=== PATIENT | male | born 1935 | race Caucasian/White ===

== ENCOUNTER 2017-02-07 11:32 | Inpatient (IN) | payer MEDICARE, MEDICAID ==
[~2017-02-07] VITALS: Ht 182.9 cm; Wt 106.6 kg
[~2017-02-07 11:32] MED LIST: AMLO5TAB2 PO; ASPI325T4 PO; CARV25TA2 PO; FURO40TA4 PO; GLIM2TAB2 PO; LIPITOR80 MG PO; LISI-334 PO; METF500T4 PO; OXYC5CAP3 PO; POTA8CAP PO; TAMS0.4C2 PO
[2017-02-07] MEDS ORDERED: HYDROCODONE/APAP 5/325MG TABLET. ONE (12:23)
--- NOTE | 2017-02-07 12:23 | PHYS DOC ---
Past Medical History Past Medical History: Diabetes-Type II, Hypertension, Other Additional Past Medical Histor: BLE SWELLING Past Surgical History: Appendectomy, Coronary Bypass Surgery, Tonsillectomy Alcohol Use: None Drug Use: None Adult General Chief Complaint Chief Complaint: LOWER EXTREMITY SWELLING HPI HPI Patient is a 82 year old male who presents with bilateral leg swelling and wound drainage. Patient presents with increasing leg swelling and drainage bilateral legs anterior shins. Edema goes all the way up to the knee bilaterally. Erythema surrounding the draining wounds. Patient states he was seen in the wound clinic up until the first of the year for these wounds. He states he has not been on antibiotics in over 6 months for these wounds. He denies any fevers or chills or shortness of breath. Patient denies any chest pain or chest pressure. Patient is a diabetic and has had coronary artery bypass surgery. Patient taking Ultram for pain. Patient states that his diet has been good. Patient denies any problems with bowel or bladder function. Review of Systems Review of Systems Constitutional: Denies fever or chills Eyes: Denies change in visual acuity, redness, or eye pain HENT: Denies nasal congestion or sore throat Respiratory: Denies cough or shortness of breath Cardiovascular: No chest pain or palpitations GI: Denies abdominal pain, nausea, vomiting, bloody stools or diarrhea : Denies dysuria or hematuria Musculoskeletal: Denies new back pain or joint pain . Positive bilateral martínez pain and ankle and knee pain Integument: Erythematous serous draining wounds involve the entire martínez bilaterally. Erythematous margins with scabbing and pitting edema bilateral anterior shins. Neurologic: Denies headache, focal weakness or sensory changes Endocrine: Denies polyuria or polydipsia Current Medications Current Medications Current Medications Medications (Trade) Dose Ordered Sig/Demetrice Start Time Stop Time Status Last Admin Dose Admin Acetaminophen/ Hydrocodone Bitart (Lortab 5/325) 1 tab STK-MED ONCE 02/07/17 12:23 02/07/17 12:24 DC Allergies Allergies Allergies Coded Allergies Type Severity Reaction Last Updated Verified No Known Drug Allergies 10/19/16 No Physical Exam Physical Exam Constitutional: Well developed, well nourished, mild acute distress, non-toxic appearance. HENT: Normocephalic, atraumatic,oropharynx moist, no oral exudates, nose normal. Neck: Normal range of motion, no tenderness, supple, no stridor. Cardiovascular:Heart rate regular rhythm, no murmur Lungs & Thorax: Bilateral breath sounds clear to auscultation Abdomen: Bowel sounds normal, soft, no tenderness, no masses, no pulsatile masses. Skin: Large area of erythema with exudate involving the bilateral shins.pitting edema up to knees bilaterally. Shins are warm to the touch. Extremities: Bilateral martínez tenderness, no cyanosis, no clubbing, edema up to knees bilaterally Neurologic: Alert and oriented X 3, normal motor function, normal sensory function, no focal deficits noted. Psychologic: Affect normal, judgement normal, mood normal. Current Patient Data Vital Signs Vital Signs Date Time Temp Pulse Resp B/P Pulse Ox O2 Delivery O2 Flow Rate FiO2 02/07/17 13:00 97 20 176/82 97 Room Air 02/07/17 11:35 97.5 97.5 Lab Values Laboratory Tests Test 02/07/17 12:35 02/07/17 12:50 Urine Collection Type Unknown Urine Color Yellow Urine Clarity Clear Urine pH 5.5 Urine Specific Delmar 1.010 Urine Protein Negativemg/dL (NEG-TRACE) Urine Glucose (UA) Negativemg/dL (NEG) Urine Ketones (Stick) Negativemg/dL (NEG) Urine Blood Negative (NEG) Urine Nitrite Negative (NEG) Urine Bilirubin Negative (NEG) Urine Urobilinogen Dipstick 1.0mg/dL (0.2 mg/dL) Urine Leukocyte Esterase Trace (NEG) Urine RBC 0/HPF (0-2) Urine WBC 5-10/HPF (0-4) Urine Squamous Epithelial Cells Few/LPF Urine Transitional Epithelial Cells Few/LPF Urine Bacteria 0/HPF (0-FEW) White Blood Count 5.2x10^3/uL (4.0-11.0) Red Blood Count 4.55x10^6/uL (4.30-5.70) Hemoglobin 12.4g/dL (13.0-17.5) L Hematocrit 37.2% (39.0-53.0) L Mean Corpuscular Volume 82fL (79-100) Mean Corpuscular Hemoglobin 27pg (25-35) Mean Corpuscular Hemoglobin Concent 33g/dL (31-37) Red Cell Distribution Width 12.8% (11.5-14.5) Platelet Count 322x10^3/uL (140-400) Neutrophils (%) (Auto) 64% (31-73) Lymphocytes (%) (Auto) 16% (24-48) L Monocytes (%) (Auto) 15% (0-9) H Eosinophils (%) (Auto) 3% (0-3) Basophils (%) (Auto) 1% (0-3) Neutrophils # (Auto) 3.3x10^3uL (1.8-7.7) Lymphocytes # (Auto) 0.8x10^3/uL (1.0-4.8) L Monocytes # (Auto) 0.8x10^3/uL (0.0-1.1) Eosinophils # (Auto) 0.2x10^3/uL (0.0-0.7) Basophils # (Auto) 0.1x10^3/uL (0.0-0.2) Sodium Level 140mmol/L (136-145) Potassium Level 4.5mmol/L (3.5-5.1) Chloride Level 103mmol/L (98-107) Carbon Dioxide Level 27mmol/L (21-32) Anion Gap 10 (6-14) Blood Urea Nitrogen 19mg/dL (8-26) Creatinine 0.9mg/dL (0.7-1.3) Estimated GFR (Cockcroft-Gault) 80.8 BUN/Creatinine Ratio 21 (6-20) H Glucose Level 188mg/dL (70-99) H Calcium Level 9.1mg/dL (8.5-10.1) Total Bilirubin 0.5mg/dL (0.2-1.0) Aspartate Amino Transferase (AST) 31U/L (15-37) Alanine Aminotransferase (ALT) 26U/L (16-63) Alkaline Phosphatase 75U/L (46-116) Total Protein 7.8g/dL (6.4-8.2) Albumin 2.9g/dL (3.4-5.0) L Albumin/Globulin Ratio 0.6 (1.0-1.7) L Laboratory Tests 02/07/17 12:50 Laboratory Tests 02/07/17 12:50 EKG EKG [] Radiology/Procedures Radiology/Procedures [] Course & Med Decision Making Course & Med Decision Making Pertinent Labs and Imaging studies reviewed. (See chart for details) Discussed case with Dr. oYung at 1402 he agrees to admit the patient request wound care consult Dragon Disclaimer Dragon Disclaimer This electronic medical record was generated, in whole or in part, using a voice recognition dictation system. Departure Departure Impression: Primary Impression: Cellulitis Disposition: 09 ADMITTED INPATIENT Admitting Physician: Zane Young Condition: STABLE Referrals: KHALIDA YOUNG MD (PCP) Problem Qualifiers Primary Impression: Cellulitis Site of cellulitis: extremity Site of cellulitis of extremity: lower extremity Laterality: unspecified laterality Qualified Code: L03.119 - Cellulitis of unspecified part of limb STEFAN BRUMFIELD MD Feb 07, 2017 12:23
[2017-02-07] MEDS ORDERED: HYDROCODONE/APAP 5/325MG TABLET. PO ONE ×2 (12:30→14:45)
[2017-02-07 13:05] LABS: BASO # 0.1 x10^3/uL (0.0-0.2); BASO % 1 % (0-3); EOS % 3 % (0-3); HEMATOCRIT 37.2 % (39.0-53.0); HEMOGLOBIN 12.4 g/dL (13.0-17.5); LYMPH # 0.8 x10^3/uL (1.0-4.8); LYMPH % 16 % (24-48); MEAN CORPUSCULAR HEMOGLOBIN 27 pg (25-35); MEAN CORPUSCULAR HGB CONC 33 g/dL (31-37); MEAN CORPUSCULAR VOLUME 82 fL (79-100); MONO % 15 % (0-9); NEUT % 64 % (31-73); PLATELET COUNT 322 x10^3/uL (140-400); RED BLOOD COUNT 4.55 x10^6/uL (4.30-5.70); RED CELL DISTRIBUTION WIDTH 12.8 % (11.5-14.5); WHITE BLOOD COUNT 5.2 x10^3/uL (4.0-11.0)
[2017-02-07 13:06] LABS: BILIRUBIN,URINE NEGATIVE (NEG); GLUCOSE,URINE NEGATIVE (NEG); NITRITE,URINE NEGATIVE (NEG); PH,URINE 5.5; PROTEIN,URINE NEGATIVE (NEG-TRACE)
[2017-02-07 13:25] LABS: BACTERIA,URINE 0 /HPF (0-FEW); RBC,URINE 0 /HPF (0-2); SQUAMOUS EPITHELIAL CELL,UR FEW /LPF
[2017-02-07 13:26] LABS: CALCIUM 9.1 mg/dL (8.5-10.1); CREATININE 0.9 mg/dL (0.7-1.3); GFR 80.8; POTASSIUM 4.5 mmol/L (3.5-5.1)
[2017-02-07 13:31] LABS: ALBUMIN 2.9 g/dL (3.4-5.0); ALBUMIN/GLOBULIN RATIO 0.6 (1.0-1.7); TOTAL BILIRUBIN 0.5 mg/dL (0.2-1.0); TOTAL PROTEIN 7.8 g/dL (6.4-8.2)
[2017-02-07 17:00] VITALS: BP 84/58
[2017-02-07] MEDS: OXYCODONE/APAP 5/325 TABLET. PO PRN (18:42)
[2017-02-07] MEDS ORDERED: DEXTROSE 50% 25 GM / 50ML DISP.SYRIN. IV PRN (18:45)
[2017-02-07 19:00] VITALS: BP 153/62
[2017-02-07] MEDS: CARVEDILOL 12.5 MG TABLET. PO SCH (19:00)
[2017-02-07] MEDS: CEFTRIAXONE SODIUM 1 GM in IV NORMAL SALINE 50ML 50 ML IV SCH (19:00)
[2017-02-07] MEDS: ATORVASTATIN CALCIUM 40 MG TABLET. PO SCH (20:56)
[2017-02-07 22:58] VITALS: BP 135/54
[2017-02-08 03:00] VITALS: BP 107/53
[2017-02-08 07:00] VITALS: BP 135/56
[2017-02-08 07:09] LABS: ALBUMIN 2.4 g/dL (3.4-5.0); ALBUMIN/GLOBULIN RATIO 0.5 (1.0-1.7); CALCIUM 8.4 mg/dL (8.5-10.1); CREATININE 0.9 mg/dL (0.7-1.3); GFR 80.8; POTASSIUM 3.5 mmol/L (3.5-5.1); TOTAL BILIRUBIN 0.9 mg/dL (0.2-1.0); TOTAL PROTEIN 6.9 g/dL (6.4-8.2)
[2017-02-08] MEDS: INSULIN ASPART 300 UNITS/3 ML INSULN.PEN SQ SCH ×3 (08:00→17:27)
[2017-02-08] MEDS ORDERED: GLIMEPIRIDE 2 MG TABLET. ONE (08:04)
[2017-02-08] MEDS: ASPIRIN 325 MG TABLET PO SCH (08:52)
[2017-02-08] MEDS: TAMSULOSIN 0.4 MG CAP.ER.24H. PO SCH (08:52)
[2017-02-08] MEDS: FUROSEMIDE 40 MG TABLET. PO SCH (08:52)
[2017-02-08] MEDS: GLIMEPIRIDE 2 MG TABLET PO SCH (08:52)
[2017-02-08] MEDS: CARVEDILOL 12.5 MG TABLET. PO SCH ×2 (08:52→17:00)
[2017-02-08] MEDS: LISINOPRIL 20 MG TABLET PO SCH (08:52)
[2017-02-08] MEDS: METFORMIN 500 MG TABLET. PO SCH ×2 (08:53→17:20)
[2017-02-08] MEDS: AMLODIPINE BESYLATE 5 MG TABLET. PO SCH (08:53)
[2017-02-08] MEDS ORDERED: POTASSIUM CHLORIDE PO SCH (09:00)
[2017-02-08 10:45] VITALS: BP 120/56
--- NOTE | 2017-02-08 12:56 | CARD ---
APPROVED REPORT EXAM: Two-dimensional and M-mode echocardiogram with Doppler and color Doppler. Other Information Quality : GoodHR: 82bpm Rhythm : NSR with APC's INDICATION Cardiac Disease: CAD LE edema 2D DIMENSIONS RVDd3.5 (2.9-3.5cm)Left Atrium(2D)3.7 (1.6-4.0cm) IVSd0.7 (0.7-1.1cm)Aortic Root(2D)2.9 (2.0-3.7cm) LVDd5.3 (3.9-5.9cm)LVOT Diameter2.3 (1.8-2.4cm) PWd0.8 (0.7-1.1cm)LVDs3.9 (2.5-4.0cm) FS (%) 25.9 %SV69.0 ml LVEF(%)50.5 (>50%) Aortic Valve AoV Peak Cooper.185.8cm/sAoV VTI31.1cm AO Peak GR.13.8mmHgLVOT Peak Cooper.143.2cm/s LVOT VTI 25.01cmAO Mean GR.7mmHg JERRY (VMAX)3.53xa4DXI (VTI)3.22cm2 Mitral Valve MV E Doysfcar01.1cm/sMV DECEL [id number] MV A Urarnswr090.3cm/sMV E Mean Gr.3mmHg MV TZM92gfR/A Ratio0.8 MV A [id number] (PHT)3.42cm2 TDI E/Lateral E'9.8E/Medial E'14.8 Pulmonary Valve PV Peak Bivjorwi295.4cm/sPV Peak Grad.6mmHg RVOT VTI20.6cm Tricuspid Valve TR P. Ecqseenw277cr/sRAP XNSEWCFQ1plUo TR Peak Gr.58cpZdSDSK58iaYt LEFT VENTRICLE The left ventricle is normal size. There is normal left ventricular wall thickness. Left ventricle sy stolic function is normal. The Ejection Fraction is 55%. There is normal LV segmental wall motion. Tr ansmitral Doppler flow pattern is Grade I-abnormal relaxation pattern. There is no ventricular septal defect visualized. RIGHT VENTRICLE The right ventricle is normal size. The right ventricular systolic function is normal. ATRIA The left atrium size is normal. The right atrium size is normal. The interatrial septum is intact wit h no evidence for an atrial septal defect or patent foramen ovale as noted on 2-D or Doppler imaging. AORTIC VALVE The aortic valve is moderately sclerotic but opens well. The aortic valve is trileaflet. Doppler and Color Flow revealed trace aortic regurgitation. There is no significant aortic valvular stenosis. MITRAL VALVE The mitral valve is calcified but opens well. There is no evidence of mitral valve prolapse. There is no mitral valve stenosis. Doppler and Color Flow revealed mild mitral regurgitation. TRICUSPID VALVE The tricuspid valve is normal in structure and function. Doppler and Color Flow revealed trace tricus pid regurgitation. There is no pulmonary hypertension. The PA pressure was estimated at 26 mmHg. PULMONIC VALVE The pulmonary valve is normal in structure and function. Doppler and Color Flow revealed trace pulmon ic valvular regurgitation. GREAT VESSELS The aortic root is normal in size. Normal pulmonary venous flow (Doppler). The IVC is normal in size and collapses >50% with inspiration. PERICARDIAL EFFUSION There is no pleural effusion. There is no evidence of significant pericardial effusion. Critical Notification Critical Value: No <Conclusion> Left ventricle systolic function is normal. The Ejection Fraction is 55%. There is normal LV segmental wall motion. Transmitral Doppler flow pattern is Grade I-abnormal relaxation pattern. Trace aortic regurgitation. Mild mitral regurgitation. Trace tricuspid regurgitation. The PA pressure was estimated at 26 mmHg. There is no evidence of significant pericardial effusion.
[2017-02-08 15:00] VITALS: BP 104/55
[2017-02-08] MEDS: OXYCODONE/APAP 5/325 TABLET. PO PRN ×2 (15:04→20:51)
[2017-02-08] MEDS: CEFTRIAXONE SODIUM 1 GM in IV NORMAL SALINE 50ML 50 ML IV SCH (17:21)
--- NOTE | 2017-02-08 17:50 | PDOC ---
Provider Note Provider Note H&P dictated # [id number] 1. venous stasis ulcers of bilateral lower extremities with cellulitis: wound care, elevation, compression, IV antibiotics 2. CAD s/p [place] CABG several years ago: EF normal 3. Type 2 diabetes with likely peripheral neuropathy: sugars currently controlled KHALIDA YOUNG MD Feb 08, 2017 17:50
[2017-02-08 19:00] VITALS: BP 154/52
[2017-02-08] MEDS: TEMAZEPAM 7.5 MG CAPSULE PO PRN (20:51)
[2017-02-08] MEDS: ATORVASTATIN CALCIUM 40 MG TABLET. PO SCH (20:51)
--- NOTE | 2017-02-08 21:54 | HP ---
ADMIT DATE: 02/07/2017 ADMISSION DIAGNOSIS: Cellulitis of the lower extremities. HISTORY OF PRESENT ILLNESS: This is an 82-year-old white male status post CABG with vein grafts who has had chronic lymphedema issues. He came to the office several months ago with venous stasis and ulceration and was sent to the wound care clinic where he healed these wounds. He has not been back over the last 3 months and his swelling has returned. He has not been in the office for any followup. He has been taking his medications. He denies any chest pain or shortness of breath. He has been trying to control the pain with tramadol. PAST MEDICAL HISTORY: Significant for type 2 diabetes, hypertension, lymphedema, coronary artery disease. PAST SURGICAL HISTORY: Include appendectomy, CABG and tonsillectomy. SOCIAL HISTORY: Negative for tobacco, alcohol or drug use. He lives with his female union steward, Cindy Stewart, who just had a pacemaker placed. FAMILY HISTORY: Noncontributory. ALLERGIES: He has no known drug allergies. HOME MEDICATIONS: Include amlodipine 5 mg daily, aspirin 325 daily, atorvastatin 80 daily, carvedilol 25 b.i.d., furosemide 40 daily, glimepiride 2 mg daily, lisinopril 20 mg daily, metformin 500 b.i.d., oxycodone 5 mg p.r.n. pain, potassium chloride ____ mEq daily, tamsulosin 0.4 mg at bedtime. REVIEW OF SYSTEMS: CONSTITUTIONAL: He denies chest pain. He denies shortness of breath. There has been no palpitations. There has been no cough. HEENT: Negative for upper respiratory or flu like symptoms. No change in his vision, no change in his hearing. No change in his taste. GASTROINTESTINAL: Negative for change in his appetite. There has not been any diarrhea, nausea or vomiting. MUSCULOSKELETAL: Positive for generalized weakness and debility. SKIN: Positive for ulcerations of the lower extremities. PSYCHIATRIC: Positive for some poor judgment and insight. No dementia symptoms. NEUROLOGIC: Consistent with peripheral neuropathy. PHYSICAL EXAMINATION: VITAL SIGNS: He has been afebrile, temperature is at 99, heart rate has been normal, respiratory rate has been normal, blood pressures have been as low as 104/55, room air oxygen saturations have been in the mid-90s. He has had more urine output than input since admission, his weight is 235 pounds. He has had 10 voids today. GENERAL: He is alert and oriented, little bit hard of hearing. He is not currently wearing his glasses. HEENT: There is no sinus congestion. There is no scleral icterus. His conjunctivae are clear. His mucous membranes are moist. NECK: Supple, no bruits. HEART: Regular rate and rhythm without murmur heard, occasional irregular beat is noted likely a PVC or PAC. LUNGS: Clear to auscultation. ABDOMEN: Soft, nondistended, nontender, no organomegaly is noted. Bowel sounds are present. EXTREMITIES: He has wraps on his legs. There are some signs of cellulitis though from the skin I can see with bright red. There is no adenopathy behind his knee, though. There are multiple sores in various stages of healing on both lower extremities per photos. Because of the wraps, I am unable to test for sensation adequately. He is not showing any focal weakness in his extremities, though. LABORATORY DATA: His hemoglobin is slightly low at 12.4. His white count is normal at 5.2, platelets are normal at 322. His chemistries show blood sugars range from 119-205. His albumin is low at 2.4, sodium is 135. The rest of the electrolytes are normal. His BUN is normal at 14 with a creatinine of 0.9. Urinalysis is unremarkable. Echocardiogram shows left ventricular systolic function that is normal. His EF is 55%. There is mild mitral regurgitation. There is a trace of tricuspid regurgitation, trace of aortic regurgitation. The PA pressure is 26. There is no pericardial effusion, no other imaging studies. ASSESSMENT: 1. Chronic lymphedema with venous stasis ulcers and cellulitis. 2. Moderate protein malnutrition. 3. Coronary artery disease, status post CABG. 4. Hypertension, controlled. 5. Type 2 diabetes, controlled, possible peripheral neuropathy. 6. Benign prostatic hypertrophy with urinary frequency, suggestive of some retention. PLAN: He is admitted. He is on IV Rocephin. Wound care is treating his legs. His sugars being controlled. He seems to be diuresing well at this point. We discussed the need for outpatient wound care followup. He is concerned about being hospitalized tomorrow as it is the first of the month and he has "bills to pay." He is hopeful that he can be discharged soon. W Jw YOUNG MD DR: CONSUELO/leisa JOB#: [id number] / [id number]
[2017-02-08 23:00] VITALS: BP 136/62
[2017-02-09 03:00] VITALS: BP 138/60
[2017-02-09] MEDS: OXYCODONE/APAP 5/325 TABLET. PO PRN ×3 (06:23→18:10)
[2017-02-09 07:33] VITALS: BP 174/66
[2017-02-09] MEDS ORDERED: GLIMEPIRIDE 2 MG TABLET. ONE (07:36)
[2017-02-09] MEDS: METFORMIN 500 MG TABLET. PO SCH ×2 (08:12→17:00)
[2017-02-09] MEDS: FUROSEMIDE 40 MG TABLET. PO SCH (08:12)
[2017-02-09] MEDS: GLIMEPIRIDE 2 MG TABLET PO SCH (08:12)
[2017-02-09] MEDS: TAMSULOSIN 0.4 MG CAP.ER.24H. PO SCH (08:12)
[2017-02-09] MEDS: ASPIRIN 325 MG TABLET PO SCH (08:13)
[2017-02-09] MEDS: LISINOPRIL 20 MG TABLET PO SCH (08:13)
[2017-02-09] MEDS: AMLODIPINE BESYLATE 5 MG TABLET. PO SCH (08:13)
[2017-02-09] MEDS: CARVEDILOL 12.5 MG TABLET. PO SCH ×2 (08:13→17:00)
[2017-02-09] MEDS: INSULIN ASPART 300 UNITS/3 ML INSULN.PEN SQ SCH ×3 (08:18→17:04)
[2017-02-09 11:00] VITALS: BP 107/50
--- NOTE | 2017-02-09 11:47 | PDOC ---
SUBJECTIVE Subjective Not really having too much pain with legs. He is eating and drinking okay. Denies any shortness of breath. Hasn't been ambulating yet. OBJECTIVE Vital Signs Vital Signs Date Time Temp Pulse Resp B/P Pulse Ox O2 Delivery O2 Flow Rate FiO2 02/09/17 08:13 77 174/66 02/09/17 08:13 77 174/66 02/09/17 08:13 77 174/66 02/09/17 08:00 Room Air 02/09/17 07:33 98.2 77 19 174/66 94 Room Air 98.2 02/09/17 07:31 16 Room Air 02/09/17 06:23 95 Room Air 02/09/17 03:00 98.3 79 19 138/60 95 Room Air 98.3 02/08/17 23:00 98.1 77 20 136/62 96 Room Air 98.1 02/08/17 21:54 97 02/08/17 20:51 97 Room Air 02/08/17 20:00 Room Air 02/08/17 19:00 97.9 83 21 154/52 97 Room Air 97.9 02/08/17 17:00 80 104/55 02/08/17 15:04 19 94 Room Air 02/08/17 15:00 97.9 80 18 104/55 93 Room Air 97.9 I & O Intake and Output 02/09/17 07:00 Intake Total 1100 ml Output Total 1050 ml Balance 50 ml Intake Oral 1100 ml Output Urine Total 1050 ml PHYSICAL EXAM Physical Exam General: No acute distress. Laying in bed. Mental status: Alert and oriented. Chest: Clear to auscultation anteriorly. Good air movement CV: Normal rate. Regular rhythm. No murmur. Abdomen: Normal bowel sounds. Soft. Not distended. No tenderness. No guarding. No rebound. Extremities: Bilateral lower extremities are wrapped. Dressings are clean and dry. There is some erythema noted on the lower legs in the area that is not wrapped. ASSESSMENT/PLAN Assessment/Plan 1. venous stasis ulcers of bilateral lower extremities with cellulitis: Continue antibiotics elevation and wraps. Continue wound care. May be able to discharge tomorrow with oral antibiotics if arrangements can be made for close follow-up with wound care. 2. CAD s/p [place] CABG several years ago: EF normal 3. Type 2 diabetes with likely peripheral neuropathy: sugars currently controlled. Continue current medications. Problems: COMMENT Lab Laboratory Tests Test 02/08/17 12:06 02/08/17 16:43 02/08/17 20:28 02/09/17 07:38 Glucose (Fingerstick) 119mg/dL (70-99) 192mg/dL (70-99) 159mg/dL (70-99) 174mg/dL (70-99) DANDY SOMERS MD Feb 09, 2017 11:47
[2017-02-09] MEDS ORDERED: DEXTROSE 50% 25 GM / 50ML DISP.SYRIN. IV PRN (13:55)
[2017-02-09 15:44] VITALS: BP 117/59
[2017-02-09 19:10] VITALS: BP 88/58
[2017-02-09] MEDS: TEMAZEPAM 7.5 MG CAPSULE PO PRN (20:39)
[2017-02-09] MEDS: ATORVASTATIN CALCIUM 40 MG TABLET. PO SCH (20:39)
[2017-02-09] MEDS: CEFTRIAXONE SODIUM 1 GM in IV NORMAL SALINE 50ML 50 ML IV SCH (20:40)
[2017-02-09 23:10] VITALS: BP 131/66
[2017-02-10] MEDS: OXYCODONE/APAP 5/325 TABLET. PO PRN ×2 (00:44→08:41)
[2017-02-10 03:10] VITALS: BP 136/64
[2017-02-10 04:28] VITALS: BP 136/64
[2017-02-10 05:23] LABS: CREATININE 0.8 mg/dL (0.7-1.3); GFR 92.5; POTASSIUM 4.8 mmol/L (3.5-5.1)
[2017-02-10 07:36] VITALS: BP 169/49
[2017-02-10] MEDS: INSULIN ASPART 300 UNITS/3 ML INSULN.PEN SQ SCH ×2 (08:00→11:54)
[2017-02-10] MEDS: FUROSEMIDE 40 MG TABLET. PO SCH (08:40)
[2017-02-10] MEDS: TAMSULOSIN 0.4 MG CAP.ER.24H. PO SCH (08:41)
[2017-02-10] MEDS: METFORMIN 500 MG TABLET. PO SCH (08:41)
[2017-02-10] MEDS: ASPIRIN 325 MG TABLET PO SCH (08:41)
[2017-02-10] MEDS: AMLODIPINE BESYLATE 5 MG TABLET. PO SCH (08:42)
[2017-02-10] MEDS: CARVEDILOL 12.5 MG TABLET. PO SCH (08:43)
[2017-02-10] MEDS: LISINOPRIL 20 MG TABLET PO SCH (08:44)
[2017-02-10] MEDS ORDERED: GLIMEPIRIDE 2 MG TABLET. PO SCH (09:00)
[2017-02-10 11:20] VITALS: BP 134/49
--- NOTE | 2017-02-10 14:13 | DISCH ---
DISCHARGE INSTRUCTIONS Condition on Discharge Condition on Discharge: Stable Activity After Discharge Activity Instructions for Disc: Activity as tolerated (keep legs elevated as much as possible) Diet after Discharge Diet after Discharge: Diabetic No Calorie Level Wound Incision Care Wound/Incision Care: Change dressing (daily. Make arrangements for wound care clinic follow-up) Wound Care Equipment: Dressings Checks after Discharge Checks after discharge: Check blood sugar, ac/hs Contacting the DR. after DC Call your doctor for: If your condition worsens Follow-Up Follow up with: Dr. Hope in 1-2 weeks Follow Up With: arrangements for wound care clinic appointment DANDY SOMERS MD Feb 10, 2017 14:13
[2017-02-10] MEDS ORDERED: CEPH-264 PO (14:17)
--- NOTE | 2017-02-10 14:28 | PDOC ---
Provider Note Provider Note See discharge summary #[id number] DANDY SOMERS MD Feb 10, 2017 14:28
--- NOTE | 2017-02-10 21:58 | DS ---
DATE OF DISCHARGE: 02/10/2017 ATTENDING PHYSICIAN: Dr. Zane Hope CHIEF COMPLAINT: Cellulitis of the lower extremities. HISTORY OF PRESENT ILLNESS: The patient is an 82-year-old male status post coronary artery bypass grafting with vein graft who has chronic lymphedema issues in the lower extremities. He was seen several months ago in the office and had venous stasis with ulceration where he was referred to a wound clinic and had healing of the wounds. His swelling had returned. He presented because he was having more problems with sores to the lower extremities. HOSPITAL COURSE: The patient was admitted. He was placed on antibiotics. He underwent wound care. He had elevation of the legs. He did have improvement in his swelling. He also had improvement in the erythema of the lower extremities. He was not having any significant pain. At the time of discharge, he was tolerating his diet without any difficulty, was able to ambulate a little bit. He was not having any additional symptoms. His blood sugars were controlled. PHYSICAL EXAMINATION: VITAL SIGNS: He was afebrile, vital signs were stable. GENERAL: He was alert and in no distress. CHEST: Clear to auscultation. HEART: Had a regular rate and rhythm. ABDOMEN: Soft and nontender. EXTREMITIES: Dressed, but had less erythema than admission and there was less edema. DISCHARGE DIAGNOSES: 1. Venous stasis ulcers of the bilateral lower extremities with cellulitis. 2. History of coronary artery disease status post coronary artery bypass grafting several years ago with a normal ejection fraction. 3. Diabetes mellitus type 2 with likely peripheral neuropathy. STUDIES: He did have an echocardiogram done, which showed an ejection fraction of 55% with mild diastolic dysfunction. DISCHARGE DIET: Diabetic diet. DISCHARGE ACTIVITIES: As tolerated. Keep the legs elevated as he is able to. FOLLOWUP: The patient is to follow up with Dr. Hope in 1-2 weeks. We will try to make arrangements for him to be seen in the [facility] again to help monitor his wounds. He feels comfortable with doing dressing changes at home at this point as he has done those within the past year on a regular basis. DISCHARGE MEDICATIONS: Keflex 500 mg 2 p.o. b.i.d. for 10 days, Norvasc 5 mg p.o. daily, aspirin 325 mg p.o. daily, Lipitor 80 mg p.o. daily, Coreg 25 mg p.o. b.i.d., Lasix 40 mg p.o. daily, Glimepiride 2 mg p.o. daily, lisinopril 20 mg p.o. daily, metformin 500 mg p.o. b.i.d., oxycodone 5 mg p.o. q.i.d. p.r.n., [id number] potassium chloride, Flomax 0.4 mg p.o. daily. DANDY SOMERS MD DR: SHAE/leisa JOB#: [id number] / [id number]
== END 2017-02-10 15:50 | disposition home or self-care (01) | DRG 603 ==
LOC: ER 11:32 → 6 SOUTH 13:42
PROVIDERS: ADMIT Family Medicine; ATTEND Family Medicine
DX: L03.115 Cellulitis of right lower limb (principal); L97.909 Non-pressure chronic ulcer of unspecified part of unspecified lower leg with unspecified severity; E44.0 Moderate protein-calorie malnutrition; L03.116 Cellulitis of left lower limb; I87.2 Venous insufficiency (chronic) (peripheral); I25.10 Atherosclerotic heart disease of native coronary artery without angina pectoris; I10 Essential (primary) hypertension; E11.622 Type 2 diabetes mellitus with other skin ulcer; I89.0 Lymphedema, not elsewhere classified; N40.0 Benign prostatic hyperplasia without lower urinary tract symptoms; E11.42 Type 2 diabetes mellitus with diabetic polyneuropathy; I25.2 Old myocardial infarction; Z90.49 Acquired absence of other specified parts of digestive tract; Z95.1 Presence of aortocoronary bypass graft
CPT/HCPCS: 36415; 80048; 80053; 81001; 82947; 85027; 87086; 93306; J0696; J1815; 97110; 97116; 99285-25

== ENCOUNTER → 2017-02-11 | Outpatient (CLI) | payer MEDICARE, MEDICAID ==
[2017-02-10 11:20] VITALS: BP 134/49
[~2017-02-11] MED LIST changes: +CEPH-264 PO
== END | disposition home or self-care (01) ==
LOC: PMGWOUND 11:59
PROVIDERS: ATTEND Emergency Medicine Undersea and Hyperbaric Medicine
DX: I87.333 Chronic venous hypertension (idiopathic) with ulcer and inflammation of bilateral lower extremity (principal); L97.211 Non-pressure chronic ulcer of right calf limited to breakdown of skin; L97.221 Non-pressure chronic ulcer of left calf limited to breakdown of skin; E11.51 Type 2 diabetes mellitus with diabetic peripheral angiopathy without gangrene; I10 Essential (primary) hypertension; E11.40 Type 2 diabetes mellitus with diabetic neuropathy, unspecified; Z95.1 Presence of aortocoronary bypass graft
CPT/HCPCS: 97597; 97598

== ENCOUNTER → 2017-02-14 | Outpatient (CLI) | payer MEDICARE, MEDICAID ==
[2017-02-10 11:20] VITALS: BP 134/49
== END | disposition home or self-care (01) ==
LOC: PMGWOUND 13:08
PROVIDERS: ATTEND Preventive Medicine Undersea and Hyperbaric Medicine
DX: I87.333 Chronic venous hypertension (idiopathic) with ulcer and inflammation of bilateral lower extremity (principal); L97.211 Non-pressure chronic ulcer of right calf limited to breakdown of skin; L97.221 Non-pressure chronic ulcer of left calf limited to breakdown of skin; E11.51 Type 2 diabetes mellitus with diabetic peripheral angiopathy without gangrene; I25.10 Atherosclerotic heart disease of native coronary artery without angina pectoris; E11.40 Type 2 diabetes mellitus with diabetic neuropathy, unspecified; I89.0 Lymphedema, not elsewhere classified; Z87.891 Personal history of nicotine dependence; I25.2 Old myocardial infarction; E11.42 Type 2 diabetes mellitus with diabetic polyneuropathy
CPT/HCPCS: 29581

== ENCOUNTER → 2017-02-18 | Outpatient (CLI) | payer MEDICARE, MEDICAID ==
[2017-02-10 11:20] VITALS: BP 134/49
== END | disposition home or self-care (01) ==
LOC: PMGWOUND 13:08
PROVIDERS: ATTEND Emergency Medicine Undersea and Hyperbaric Medicine
DX: I87.333 Chronic venous hypertension (idiopathic) with ulcer and inflammation of bilateral lower extremity (principal); L97.211 Non-pressure chronic ulcer of right calf limited to breakdown of skin; L97.221 Non-pressure chronic ulcer of left calf limited to breakdown of skin; E11.51 Type 2 diabetes mellitus with diabetic peripheral angiopathy without gangrene; E11.40 Type 2 diabetes mellitus with diabetic neuropathy, unspecified; Z95.1 Presence of aortocoronary bypass graft; Z87.891 Personal history of nicotine dependence
CPT/HCPCS: 29581

== ENCOUNTER → 2017-02-21 | Outpatient (CLI) | payer MEDICARE, MEDICAID ==
[2017-02-10 11:20] VITALS: BP 134/49
== END | disposition home or self-care (01) ==
LOC: PMGWOUND 12:59
PROVIDERS: ATTEND Emergency Medicine Undersea and Hyperbaric Medicine
DX: I87.333 Chronic venous hypertension (idiopathic) with ulcer and inflammation of bilateral lower extremity (principal); E11.622 Type 2 diabetes mellitus with other skin ulcer; L97.211 Non-pressure chronic ulcer of right calf limited to breakdown of skin; L97.221 Non-pressure chronic ulcer of left calf limited to breakdown of skin; E11.51 Type 2 diabetes mellitus with diabetic peripheral angiopathy without gangrene; E11.40 Type 2 diabetes mellitus with diabetic neuropathy, unspecified; Z95.1 Presence of aortocoronary bypass graft; Z87.891 Personal history of nicotine dependence
CPT/HCPCS: 29581

== ENCOUNTER → 2017-02-26 | Outpatient (CLI) | payer MEDICARE, MEDICAID ==
[2017-02-10 11:20] VITALS: BP 134/49
== END | disposition home or self-care (01) ==
LOC: PMGWOUND 13:15
PROVIDERS: ATTEND Emergency Medicine Undersea and Hyperbaric Medicine
DX: I87.333 Chronic venous hypertension (idiopathic) with ulcer and inflammation of bilateral lower extremity (principal); E11.622 Type 2 diabetes mellitus with other skin ulcer; L97.211 Non-pressure chronic ulcer of right calf limited to breakdown of skin; L97.221 Non-pressure chronic ulcer of left calf limited to breakdown of skin; E11.51 Type 2 diabetes mellitus with diabetic peripheral angiopathy without gangrene; E11.40 Type 2 diabetes mellitus with diabetic neuropathy, unspecified; Z95.1 Presence of aortocoronary bypass graft; Z87.891 Personal history of nicotine dependence
CPT/HCPCS: 29581

== ENCOUNTER → 2017-03-06 | Outpatient (CLI) | payer MEDICARE, MEDICAID ==
[2017-02-10 11:20] VITALS: BP 134/49
== END | disposition home or self-care (01) ==
LOC: PMGWOUND 10:24
PROVIDERS: ATTEND Preventive Medicine Undersea and Hyperbaric Medicine
DX: I87.333 Chronic venous hypertension (idiopathic) with ulcer and inflammation of bilateral lower extremity (principal); L97.211 Non-pressure chronic ulcer of right calf limited to breakdown of skin; L97.221 Non-pressure chronic ulcer of left calf limited to breakdown of skin; E11.621 Type 2 diabetes mellitus with foot ulcer; L97.521 Non-pressure chronic ulcer of other part of left foot limited to breakdown of skin; E11.51 Type 2 diabetes mellitus with diabetic peripheral angiopathy without gangrene; I25.10 Atherosclerotic heart disease of native coronary artery without angina pectoris; E11.40 Type 2 diabetes mellitus with diabetic neuropathy, unspecified; Z95.1 Presence of aortocoronary bypass graft; Z87.891 Personal history of nicotine dependence
CPT/HCPCS: 29581

== ENCOUNTER → 2017-03-14 | Outpatient (CLI) | payer MEDICARE, MEDICAID | END | disposition home or self-care (01) | LOC: PMGWOUND 13:17 | PROVIDERS: ATTEND Emergency Medicine Undersea and Hyperbaric Medicine | DX: I87.333 Chronic venous hypertension (idiopathic) with ulcer and inflammation of bilateral lower extremity (principal); E11.622 Type 2 diabetes mellitus with other skin ulcer; L97.211 Non-pressure chronic ulcer of right calf limited to breakdown of skin; L97.221 Non-pressure chronic ulcer of left calf limited to breakdown of skin; E11.621 Type 2 diabetes mellitus with foot ulcer; L97.522 Non-pressure chronic ulcer of other part of left foot with fat layer exposed; I25.10 Atherosclerotic heart disease of native coronary artery without angina pectoris; E11.51 Type 2 diabetes mellitus with diabetic peripheral angiopathy without gangrene; E11.40 Type 2 diabetes mellitus with diabetic neuropathy, unspecified; I89.0 Lymphedema, not elsewhere classified; Z95.1 Presence of aortocoronary bypass graft; Z87.891 Personal history of nicotine dependence | CPT/HCPCS: 11042; 29581 ==

== ENCOUNTER → 2017-03-21 | Outpatient (CLI) | payer MEDICARE, MEDICAID | END | disposition home or self-care (01) | LOC: PMGWOUND 13:00 | PROVIDERS: ATTEND Emergency Medicine Undersea and Hyperbaric Medicine | DX: I87.333 Chronic venous hypertension (idiopathic) with ulcer and inflammation of bilateral lower extremity (principal); E11.621 Type 2 diabetes mellitus with foot ulcer; E11.622 Type 2 diabetes mellitus with other skin ulcer; L97.211 Non-pressure chronic ulcer of right calf limited to breakdown of skin; L97.221 Non-pressure chronic ulcer of left calf limited to breakdown of skin; L97.522 Non-pressure chronic ulcer of other part of left foot with fat layer exposed; E11.51 Type 2 diabetes mellitus with diabetic peripheral angiopathy without gangrene; I25.10 Atherosclerotic heart disease of native coronary artery without angina pectoris; E11.40 Type 2 diabetes mellitus with diabetic neuropathy, unspecified; I89.0 Lymphedema, not elsewhere classified; Z87.891 Personal history of nicotine dependence | CPT/HCPCS: 11042; 29581 ==

== ENCOUNTER 2017-12-15 10:28 | Emergency (ER) | payer MEDICARE, MEDICAID ==
[2017-12-15 11:10] LABS: ADD MAN DIFF? NO
[2017-12-15 11:21] LABS: BASO # 0.1 x10^3/uL (0.0-0.2); BASO % 1 % (0-3); EOS # 0.2 x10^3/uL (0.0-0.7); EOS % 3 % (0-3); HEMATOCRIT 41.3 % (39.0-53.0); HEMOGLOBIN 13.8 g/dL (13.0-17.5); LYMPH # 1.4 x10^3/uL (1.0-4.8); LYMPH % 20 % (24-48); MEAN CORPUSCULAR HEMOGLOBIN 27 pg (25-35); MEAN CORPUSCULAR HGB CONC 33 g/dL (31-37); MEAN CORPUSCULAR VOLUME 80 fL (79-100); MONO # 0.5 x10^3/uL (0.0-1.1); MONO % 8 % (0-9); NEUT # 4.6 x10^3uL (1.8-7.7); NEUT % 68 % (31-73); PLATELET COUNT 216 x10^3/uL (140-400); RED BLOOD COUNT 5.15 x10^6/uL (4.30-5.70); RED CELL DISTRIBUTION WIDTH 14.8 % (11.5-14.5); WHITE BLOOD COUNT 6.8 x10^3/uL (4.0-11.0)
[2017-12-15 11:26] LABS: ANION GAP 12 (6-14); BLOOD UREA NITROGEN 29 mg/dL (8-26); BUN/CREATININE RATIO 29 (6-20); CALCIUM 9.5 mg/dL (8.5-10.1); CARBON DIOXIDE 24 mmol/L (21-32); CHLORIDE 101 mmol/L (98-107); GFR 71.5; GLUCOSE 150 mg/dL (70-99); POTASSIUM 4.1 mmol/L (3.5-5.1); SODIUM 137 mmol/L (136-145)
[2017-12-15 11:32] LABS: ALBUMIN 3.7 g/dL (3.4-5.0); ALBUMIN/GLOBULIN RATIO 0.8 (1.0-1.7); ALK PHOS 86 U/L (46-116); ALT (SGPT) 20 U/L (16-63); AST (SGOT) 24 U/L (15-37); TOTAL BILIRUBIN 0.5 mg/dL (0.2-1.0); TOTAL PROTEIN 8.3 g/dL (6.4-8.2)
[2017-12-15 11:37] LABS: INFLUENZA A PATIENT NEGATIVE (NEGATIVE); INFLUENZA B PATIENT NEGATIVE (NEGATIVE); OBC FLU VALID
[2017-12-15 13:27] LABS: BILIRUBIN,URINE NEGATIVE (NEG); CLARITY,URINE CLEAR; COLOR,URINE YELLOW; GLUCOSE,URINE NEGATIVE (NEG); NITRITE,URINE NEGATIVE (NEG); PH,URINE 5.5; PROTEIN,URINE NEGATIVE (NEG-TRACE); UROBILINOGEN,URINE 0.2 mg/dL (0.2 mg/dL)
[2017-12-15 13:54] LABS: BACTERIA,URINE 0 /HPF (0-FEW); RBC,URINE 0 /HPF (0-2)
[2017-12-15 13:55] LABS: SQUAMOUS EPITHELIAL CELL,UR FEW /LPF
== END 2017-12-15 15:00 | disposition home or self-care (01) ==
LOC: ER 10:28
DX: R53.1 Weakness (principal); M79.1 Myalgia; E11.9 Type 2 diabetes mellitus without complications; E78.00 Pure hypercholesterolemia, unspecified; I11.0 Hypertensive heart disease with heart failure; I50.9 Heart failure, unspecified; Z95.1 Presence of aortocoronary bypass graft; Z90.49 Acquired absence of other specified parts of digestive tract
CPT/HCPCS: 36415; 71045; 80053; 81001; 83605; 85025; 87086; 87804; 87804-59; 93005; 99285-25

== ENCOUNTER 2018-02-05 11:33 | Inpatient (IN) | payer MEDICARE, MEDICAID ==
[2018-02-05 12:41] LABS: ADD MAN DIFF? NO
[2018-02-05 12:46] LABS: BASO # 0.1 x10^3/uL (0.0-0.2); BASO % 1 % (0-3); EOS # 0.1 x10^3/uL (0.0-0.7); EOS % 1 % (0-3); HEMATOCRIT 40.2 % (39.0-53.0); HEMOGLOBIN 12.9 g/dL (13.0-17.5); LYMPH % 14 % (24-48); MEAN CORPUSCULAR HEMOGLOBIN 25 pg (25-35); MEAN CORPUSCULAR HGB CONC 32 g/dL (31-37); MEAN CORPUSCULAR VOLUME 78 fL (79-100); MONO # 0.4 x10^3/uL (0.0-1.1); MONO % 6 % (0-9); NEUT # 5.7 x10^3uL (1.8-7.7); NEUT % 78 % (31-73); PLATELET COUNT 175 x10^3/uL (140-400); RED BLOOD COUNT 5.18 x10^6/uL (4.30-5.70); RED CELL DISTRIBUTION WIDTH 14.9 % (11.5-14.5); WHITE BLOOD COUNT 7.3 x10^3/uL (4.0-11.0)
[2018-02-05 12:58] LABS: ANION GAP 12 (6-14); BLOOD UREA NITROGEN 34 mg/dL (8-26); CALCIUM 9.5 mg/dL (8.5-10.1); CARBON DIOXIDE 24 mmol/L (21-32); CHLORIDE 100 mmol/L (98-107); CREATININE 1.3 mg/dL (0.7-1.3); GFR 52.7; GLUCOSE 193 mg/dL (70-99); POTASSIUM 4.3 mmol/L (3.5-5.1); SODIUM 136 mmol/L (136-145)
[2018-02-05 13:02] LABS: INR 1.4 (0.8-1.1); PROTHROMBIN TIME PATIENT 16.6 SEC (11.7-14.0)
[2018-02-05 13:08] LABS: THYROID STIM HORMONE (TSH) 5.185 uIU/mL (0.358-3.74)
[2018-02-05 13:10] LABS: NT-PRO BNP 11756 pg/mL (0-449)
[2018-02-05 13:10] LABS: ALBUMIN 3.3 g/dL (3.4-5.0); ALK PHOS 72 U/L (46-116); ALT (SGPT) 33 U/L (16-63); AST (SGOT) 40 U/L (15-37); CKMB MASS 1.8 ng/mL (0.0-3.6); CREATINE KINASE 60 U/L (39-308); DIRECT BILIRUBIN 0.2 mg/dL (0.0-0.2); LIPASE 72 U/L (73-393); MAGNESIUM 2.2 mg/dL (1.8-2.4); TOTAL PROTEIN 8.1 g/dL (6.4-8.2)
[2018-02-05 13:18] LABS: TROPONINI 0.078 ng/mL (0.000-0.055)
[2018-02-05] MEDS ORDERED: PIP/TAZO PER PHARMACY MC (13:30)
[2018-02-05] MEDS: FUROSEMIDE 40 MG/4 ML VIAL. IVP (13:44)
[2018-02-05 14:37] LABS: AMPHETAMINE/METHAMPHETAMINE NEG (NEG); BARBITURATES NEG (NEG); BENZODIAZEPINES NEG (NEG); CANNABINOIDS NEG (NEG); COCAINE NEG (NEG); ETHANOL, URINE NEG (NEG); METHADONE NEG (NEG); OPIATES NEG (NEG); PHENCYCLIDINE NEG (NEG)
[2018-02-05] MEDS: PIPERACILLIN/TAZOBACTAM 4.5 GM in IV NORMAL SALINE 100ML 100 ML IV (15:17)
[2018-02-05] MEDS ORDERED: hydrALAZINE 20 MG/ML VIAL. IVP (16:00)
[2018-02-05] MEDS: ASPIRIN ENTERIC COATED 81 MG TABLET.DR. PO (17:33)
[2018-02-05] MEDS: CARVEDILOL 12.5 MG TABLET. PO (17:34)
[2018-02-05] MEDS: amLODIPine BESYLATE 5 MG TABLET PO (17:34)
[2018-02-05] MEDS: POTASSIUM CHLORIDE 20 MEQ TABLET.ER. PO (17:35)
[2018-02-05 19:46] LABS: TROPONINI 0.097 ng/mL (0.000-0.055)
[2018-02-05 20:38] LABS: POC GLUCOSE 155 mg/dL (70-99)
[2018-02-05] MEDS: PIPERACILLIN/TAZOBACTAM 3.375 GM in IV NORMAL SALINE 50ML 50 ML IV ×2 (20:52→23:40)
[2018-02-05] MEDS: traMADol 50 MG TABLET PO (22:49)
[2018-02-06] MEDS: traMADol 50 MG TABLET PO ×3 (00:39→23:10)
[2018-02-06 03:32] LABS: ADD MAN DIFF? NO
[2018-02-06 04:21] LABS: BASO # 0.1 x10^3/uL (0.0-0.2); BASO % 1 % (0-3); EOS # 0.2 x10^3/uL (0.0-0.7); EOS % 3 % (0-3); HEMATOCRIT 35.8 % (39.0-53.0); HEMOGLOBIN 11.6 g/dL (13.0-17.5); LYMPH % 15 % (24-48); MEAN CORPUSCULAR HEMOGLOBIN 25 pg (25-35); MEAN CORPUSCULAR HGB CONC 33 g/dL (31-37); MEAN CORPUSCULAR VOLUME 77 fL (79-100); MONO # 0.6 x10^3/uL (0.0-1.1); MONO % 9 % (0-9); NEUT # 4.9 x10^3uL (1.8-7.7); NEUT % 72 % (31-73); PLATELET COUNT 149 x10^3/uL (140-400); RED BLOOD COUNT 4.66 x10^6/uL (4.30-5.70); WHITE BLOOD COUNT 6.8 x10^3/uL (4.0-11.0)
[2018-02-06 04:57] LABS: ANION GAP 11 (6-14); BLOOD UREA NITROGEN 32 mg/dL (8-26); CALCIUM 8.7 mg/dL (8.5-10.1); CARBON DIOXIDE 24 mmol/L (21-32); CHLORIDE 103 mmol/L (98-107); CREATININE 1.3 mg/dL (0.7-1.3); GFR 52.7; GLUCOSE 152 mg/dL (70-99); POTASSIUM 3.9 mmol/L (3.5-5.1); SODIUM 138 mmol/L (136-145)
[2018-02-06] MEDS: PIPERACILLIN/TAZOBACTAM 3.375 GM in IV NORMAL SALINE 50ML 50 ML IV ×3 (06:10→17:35)
[2018-02-06] MEDS: ALBUTEROL SULFATE 2.5 MG/3 ML NEBU. NEB ×2 (07:58→20:21)
[2018-02-06 08:11] LABS: POC GLUCOSE 162 mg/dL (70-99)
[2018-02-06] MEDS: GLIMEPIRIDE 2 MG TABLET. PO (08:57)
[2018-02-06] MEDS: TAMSULOSIN 0.4 MG CAP.ER.24H. PO (08:57)
[2018-02-06] MEDS: metFORMIN 850 MG TABLET PO ×2 (08:57→17:33)
[2018-02-06] MEDS: ASPIRIN ENTERIC COATED 81 MG TABLET.DR. PO (08:58)
[2018-02-06] MEDS: CARVEDILOL 12.5 MG TABLET. PO ×2 (08:58→17:34)
[2018-02-06] MEDS: SERTRALINE 25 MG TABLET. PO (08:58)
[2018-02-06] MEDS: POTASSIUM CHLORIDE 20 MEQ TABLET.ER. PO (08:58)
[2018-02-06] MEDS: LACTOBACILLUS RHAMNOSUS GG 1 CAPSULE. PO ×2 (08:59→20:40)
[2018-02-06] MEDS: amLODIPine BESYLATE 5 MG TABLET PO (08:59)
[2018-02-06] MEDS: FUROSEMIDE 40 MG/4 ML VIAL. IVP ×2 (08:59→13:01)
[2018-02-06] MEDS ORDERED: ALBUTEROL SULFATE 8GM INHALER. IH (09:00)
[2018-02-06] MEDS: NON FORMULARY ITEM (Empagliflozin/Linagliptin (Glyxambi 10 mg-5 mg Tablet) 1 EACH) PO (09:00)
[2018-02-06] MEDS ORDERED: ASPIRIN 325 MG TABLET PO (09:00)
[2018-02-06] MEDS ORDERED: FUROSEMIDE 80 MG TABLET. PO (09:00)
[2018-02-06 13:59] LABS: POC GLUCOSE 157 mg/dL (70-99)
[2018-02-06 16:52] LABS: POC GLUCOSE 102 mg/dL (70-99)
[2018-02-06 20:22] LABS: POC GLUCOSE 112 mg/dL (70-99)
[2018-02-07] MEDS: PIPERACILLIN/TAZOBACTAM 3.375 GM in IV NORMAL SALINE 50ML 50 ML IV ×3 (00:08→12:25)
[2018-02-07] MEDS: ALBUTEROL SULFATE 2.5 MG/3 ML NEBU. NEB ×2 (07:40→20:25)
[2018-02-07 08:12] LABS: POC GLUCOSE 132 mg/dL (70-99)
[2018-02-07] MEDS: LACTOBACILLUS RHAMNOSUS GG 1 CAPSULE. PO ×2 (08:47→21:00)
[2018-02-07] MEDS: ASPIRIN ENTERIC COATED 81 MG TABLET.DR. PO (08:47)
[2018-02-07] MEDS: POTASSIUM CHLORIDE 20 MEQ TABLET.ER. PO (08:48)
[2018-02-07] MEDS: TAMSULOSIN 0.4 MG CAP.ER.24H. PO (08:48)
[2018-02-07] MEDS: amLODIPine BESYLATE 5 MG TABLET PO (08:48)
[2018-02-07] MEDS: metFORMIN 850 MG TABLET PO ×2 (08:48→17:21)
[2018-02-07] MEDS: CARVEDILOL 12.5 MG TABLET. PO ×2 (08:49→17:22)
[2018-02-07] MEDS: SERTRALINE 25 MG TABLET. PO (08:49)
[2018-02-07] MEDS: NON FORMULARY ITEM (Empagliflozin/Linagliptin (Glyxambi 10 mg-5 mg Tablet) 1 EACH) PO (08:49)
[2018-02-07] MEDS: GLIMEPIRIDE 2 MG TABLET. PO (08:49)
[2018-02-07] MEDS: FUROSEMIDE 40 MG/4 ML VIAL. IVP ×2 (08:49→13:23)
[2018-02-07 11:29] LABS: POC GLUCOSE 169 mg/dL (70-99)
[2018-02-07] MEDS: traMADol 50 MG TABLET PO (12:25)
[2018-02-07 17:04] LABS: POC GLUCOSE 103 mg/dL (70-99)
[2018-02-07] MEDS: ASCORBIC ACID 500 MG TABLET PO (19:25)
[2018-02-07] MEDS: MULTIVITAMIN with MINERAL TABLET. PO (19:25)
[2018-02-07 21:12] LABS: POC GLUCOSE 117 mg/dL (70-99)
[2018-02-07] MEDS: AMOXICILLIN/K CLAV 875/125MG TABLET. PO (21:35)
[2018-02-08] MEDS: POTASSIUM CHLORIDE 20 MEQ TABLET.ER. PO (08:12)
[2018-02-08] MEDS: FUROSEMIDE 40 MG/4 ML VIAL. IVP (08:12)
[2018-02-08] MEDS: MULTIVITAMIN with MINERAL TABLET. PO (08:13)
[2018-02-08] MEDS: ASCORBIC ACID 500 MG TABLET PO (08:13)
[2018-02-08] MEDS: ASPIRIN ENTERIC COATED 81 MG TABLET.DR. PO (08:15)
[2018-02-08] MEDS: CARVEDILOL 12.5 MG TABLET. PO (08:15)
[2018-02-08] MEDS: amLODIPine BESYLATE 5 MG TABLET PO (08:15)
[2018-02-08] MEDS: LACTOBACILLUS RHAMNOSUS GG 1 CAPSULE. PO (08:16)
[2018-02-08] MEDS: SERTRALINE 25 MG TABLET. PO (08:16)
[2018-02-08] MEDS: metFORMIN 850 MG TABLET PO (08:16)
[2018-02-08] MEDS: LINAGLIPTIN 5 MG TABLET PO (08:16)
[2018-02-08] MEDS: GLIMEPIRIDE 2 MG TABLET. PO (08:16)
[2018-02-08] MEDS: TAMSULOSIN 0.4 MG CAP.ER.24H. PO (08:16)
[2018-02-08] MEDS: AMOXICILLIN/K CLAV 875/125MG TABLET. PO (08:16)
[2018-02-08 08:21] LABS: POC GLUCOSE 133 mg/dL (70-99)
[2018-02-08] MEDS: ALBUTEROL SULFATE 2.5 MG/3 ML NEBU. NEB (08:26)
[2018-02-08 11:58] LABS: POC GLUCOSE 121 mg/dL (70-99)
== END 2018-02-08 13:57 | disposition home health service (06) | DRG 602 ==
LOC: ER 11:33 → 2 NORTH 13:39
DX: L03.116 Cellulitis of left lower limb (principal); I50.43 Acute on chronic combined systolic (congestive) and diastolic (congestive) heart failure; E11.51 Type 2 diabetes mellitus with diabetic peripheral angiopathy without gangrene; I27.81 Cor pulmonale (chronic); I42.9 Cardiomyopathy, unspecified; J44.1 Chronic obstructive pulmonary disease with (acute) exacerbation; L97.929 Non-pressure chronic ulcer of unspecified part of left lower leg with unspecified severity; E03.9 Hypothyroidism, unspecified; E78.00 Pure hypercholesterolemia, unspecified; E78.5 Hyperlipidemia, unspecified; I11.0 Hypertensive heart disease with heart failure; I25.10 Atherosclerotic heart disease of native coronary artery without angina pectoris; I87.2 Venous insufficiency (chronic) (peripheral); Z86.73 Personal history of transient ischemic attack (TIA), and cerebral infarction without residual deficits; Z90.49 Acquired absence of other specified parts of digestive tract; Z91.14 Patient's other noncompliance with medication regimen; Z95.1 Presence of aortocoronary bypass graft; M19.90 Unspecified osteoarthritis, unspecified site; Z60.2 Problems related to living alone
CPT/HCPCS: 36415; 71045; 80048; 80076; 80307; 82553; 82962; 83690; 83735; 83880; 84443; 84484; 85025; 85610; 93005; 93306; 93925; 94640; 94760; 96374; 97116-GP; 97162-GP; 97165-GO; 99285; 99285-25; J1940; J2543; J7613

== ENCOUNTER → 2018-02-19 | Outpatient (CLI) | payer MEDICARE, MEDICAID | END | disposition home or self-care (01) | LOC: PMGWOUND 10:00 | DX: I87.313 Chronic venous hypertension (idiopathic) with ulcer of bilateral lower extremity (principal); E11.622 Type 2 diabetes mellitus with other skin ulcer; L97.821 Non-pressure chronic ulcer of other part of left lower leg limited to breakdown of skin; L97.811 Non-pressure chronic ulcer of other part of right lower leg limited to breakdown of skin; I25.10 Atherosclerotic heart disease of native coronary artery without angina pectoris; I89.0 Lymphedema, not elsewhere classified; J44.1 Chronic obstructive pulmonary disease with (acute) exacerbation; I11.0 Hypertensive heart disease with heart failure; I50.9 Heart failure, unspecified; E03.9 Hypothyroidism, unspecified; E78.00 Pure hypercholesterolemia, unspecified; E11.51 Type 2 diabetes mellitus with diabetic peripheral angiopathy without gangrene; M19.90 Unspecified osteoarthritis, unspecified site; Z95.1 Presence of aortocoronary bypass graft; Z79.82 Long term (current) use of aspirin; Z79.899 Other long term (current) drug therapy; Z86.73 Personal history of transient ischemic attack (TIA), and cerebral infarction without residual deficits | CPT/HCPCS: 29581; 97597 ==

== ENCOUNTER → 2018-02-24 | Outpatient (CLI) | payer MEDICARE, MEDICAID | END | disposition home or self-care (01) | LOC: PMGWOUND 12:21 | DX: I87.313 Chronic venous hypertension (idiopathic) with ulcer of bilateral lower extremity (principal); E11.622 Type 2 diabetes mellitus with other skin ulcer; L97.811 Non-pressure chronic ulcer of other part of right lower leg limited to breakdown of skin; L97.821 Non-pressure chronic ulcer of other part of left lower leg limited to breakdown of skin; I25.10 Atherosclerotic heart disease of native coronary artery without angina pectoris; J44.1 Chronic obstructive pulmonary disease with (acute) exacerbation; I11.0 Hypertensive heart disease with heart failure; I50.43 Acute on chronic combined systolic (congestive) and diastolic (congestive) heart failure; E03.9 Hypothyroidism, unspecified; I89.0 Lymphedema, not elsewhere classified; E78.00 Pure hypercholesterolemia, unspecified; E11.51 Type 2 diabetes mellitus with diabetic peripheral angiopathy without gangrene; M19.90 Unspecified osteoarthritis, unspecified site; E78.5 Hyperlipidemia, unspecified; Z95.1 Presence of aortocoronary bypass graft; Z86.73 Personal history of transient ischemic attack (TIA), and cerebral infarction without residual deficits; Z90.49 Acquired absence of other specified parts of digestive tract | CPT/HCPCS: 29581 ==

== ENCOUNTER → 2018-03-03 | Outpatient (CLI) | payer MEDICARE, MEDICAID | END | disposition home or self-care (01) | LOC: PMGWOUND 11:15 | DX: I87.313 Chronic venous hypertension (idiopathic) with ulcer of bilateral lower extremity (principal); E11.622 Type 2 diabetes mellitus with other skin ulcer; L97.811 Non-pressure chronic ulcer of other part of right lower leg limited to breakdown of skin; L97.821 Non-pressure chronic ulcer of other part of left lower leg limited to breakdown of skin; I25.10 Atherosclerotic heart disease of native coronary artery without angina pectoris; J44.1 Chronic obstructive pulmonary disease with (acute) exacerbation; I11.0 Hypertensive heart disease with heart failure; I50.43 Acute on chronic combined systolic (congestive) and diastolic (congestive) heart failure; E03.9 Hypothyroidism, unspecified; I89.0 Lymphedema, not elsewhere classified; E78.00 Pure hypercholesterolemia, unspecified; E11.51 Type 2 diabetes mellitus with diabetic peripheral angiopathy without gangrene; M19.90 Unspecified osteoarthritis, unspecified site; E78.5 Hyperlipidemia, unspecified; Z95.1 Presence of aortocoronary bypass graft; Z86.73 Personal history of transient ischemic attack (TIA), and cerebral infarction without residual deficits; Z90.49 Acquired absence of other specified parts of digestive tract | CPT/HCPCS: 29581; 97597; 97598 ==

== ENCOUNTER → 2018-03-06 | Outpatient (CLI) | payer MEDICARE, MEDICAID | END | disposition home or self-care (01) | LOC: PMGWOUND 09:14 | DX: I87.311 Chronic venous hypertension (idiopathic) with ulcer of right lower extremity (principal); E11.622 Type 2 diabetes mellitus with other skin ulcer; L97.811 Non-pressure chronic ulcer of other part of right lower leg limited to breakdown of skin; I25.10 Atherosclerotic heart disease of native coronary artery without angina pectoris; I89.0 Lymphedema, not elsewhere classified; J44.1 Chronic obstructive pulmonary disease with (acute) exacerbation; E03.9 Hypothyroidism, unspecified; E78.00 Pure hypercholesterolemia, unspecified; M19.90 Unspecified osteoarthritis, unspecified site; E11.51 Type 2 diabetes mellitus with diabetic peripheral angiopathy without gangrene; I11.0 Hypertensive heart disease with heart failure; I50.43 Acute on chronic combined systolic (congestive) and diastolic (congestive) heart failure; Z86.73 Personal history of transient ischemic attack (TIA), and cerebral infarction without residual deficits; Z95.1 Presence of aortocoronary bypass graft; Z90.49 Acquired absence of other specified parts of digestive tract | CPT/HCPCS: 97597; 97598 ==

== ENCOUNTER 2018-03-10 15:26 | Inpatient (IN) | payer MEDICARE, MEDICAID, OTHER ==
[2018-03-10 16:51] LABS: ADD MAN DIFF? NO
[2018-03-10 16:53] LABS: BASO # 0.1 x10^3/uL (0.0-0.2); BASO % 1 % (0-3); EOS # 0.1 x10^3/uL (0.0-0.7); EOS % 2 % (0-3); HEMATOCRIT 38.5 % (39.0-53.0); HEMOGLOBIN 12.7 g/dL (13.0-17.5); LYMPH # 0.7 x10^3/uL (1.0-4.8); LYMPH % 8 % (24-48); MEAN CORPUSCULAR HEMOGLOBIN 25 pg (25-35); MEAN CORPUSCULAR HGB CONC 33 g/dL (31-37); MEAN CORPUSCULAR VOLUME 75 fL (79-100); MONO # 0.8 x10^3/uL (0.0-1.1); MONO % 9 % (0-9); NEUT # 6.8 x10^3uL (1.8-7.7); NEUT % 80 % (31-73); PLATELET COUNT 216 x10^3/uL (140-400); RED BLOOD COUNT 5.12 x10^6/uL (4.30-5.70); RED CELL DISTRIBUTION WIDTH 15.8 % (11.5-14.5); WHITE BLOOD COUNT 8.4 x10^3/uL (4.0-11.0)
[2018-03-10 17:08] LABS: INR 1.2 (0.8-1.1); PROTHROMBIN TIME PATIENT 14.6 SEC (11.7-14.0)
[2018-03-10 17:18] LABS: C-REACTIVE PROTEIN 4.5 mg/L (0-3.3)
[2018-03-10 17:21] LABS: ANION GAP 11 (6-14); BLOOD UREA NITROGEN 30 mg/dL (8-26); CALCIUM 9.4 mg/dL (8.5-10.1); CARBON DIOXIDE 23 mmol/L (21-32); CHLORIDE 100 mmol/L (98-107); CREATININE 1.2 mg/dL (0.7-1.3); GFR 57.8; GLUCOSE 146 mg/dL (70-99); POTASSIUM 4.6 mmol/L (3.5-5.1); SODIUM 134 mmol/L (136-145)
[2018-03-10 17:26] LABS: TROPONINI < 0.017 ng/mL (0.000-0.055)
[2018-03-10 17:31] LABS: NT-PRO BNP 5312 pg/mL (0-449)
[2018-03-10 17:31] LABS: ALBUMIN 3.5 g/dL (3.4-5.0); ALK PHOS 72 U/L (46-116); ALT (SGPT) 21 U/L (16-63); AST (SGOT) 25 U/L (15-37); CKMB INDEX 1.2 % (0-4); CKMB MASS 0.9 ng/mL (0.0-3.6); CREATINE KINASE 73 U/L (39-308); DIRECT BILIRUBIN 0.3 mg/dL (0.0-0.2); LIPASE 111 U/L (73-393); TOTAL PROTEIN 8.2 g/dL (6.4-8.2)
[2018-03-10 17:55] LABS: SEDIMENTATION RATE 8 (0-15)
[2018-03-10 17:56] LABS: BILIRUBIN,URINE NEGATIVE (NEG); CLARITY,URINE CLEAR; COLOR,URINE YELLOW; GLUCOSE,URINE NEGATIVE (NEG); NITRITE,URINE NEGATIVE (NEG); PROTEIN,URINE NEGATIVE (NEG-TRACE)
[2018-03-10 18:09] LABS: BACTERIA,URINE 0 /HPF (0-FEW); HYALINE CASTS, URINE OCCASIONAL /HPF; RBC,URINE OCC /HPF (0-2); SQUAMOUS EPITHELIAL CELL,UR MOD /LPF
[2018-03-10] MEDS: VANCOMYCIN 2 GM in IV 1/2 NORMAL SALINE 500 ML IV (19:00)
[2018-03-10] MEDS: FUROSEMIDE 40 MG/4 ML VIAL. IVP (19:09)
[2018-03-10] MEDS: ONDANSETRON PF 4 MG/2 ML VIAL. IV (19:09)
[2018-03-10] MEDS: VANCOMYCIN PER PHARMACY MC (19:48)
[2018-03-10] MEDS: traMADol 50 MG TABLET PO (21:00)
[2018-03-10] MEDS: ATORVASTATIN CALCIUM 40 MG TABLET. PO (21:39)
[2018-03-10] MEDS: ENOXAPARIN 40 MG/0.4 ML SYRINGE. SQ (21:40)
[2018-03-10 21:52] LABS: POC GLUCOSE 135 mg/dL (70-99)
[2018-03-10 21:52] LABS: TROPONINI < 0.017 ng/mL (0.000-0.055)
[2018-03-10] MEDS ORDERED: C.DIFF MED SCREEN BY RX. MC (22:30)
[2018-03-11] MEDS: traMADol 50 MG TABLET PO ×3 (00:52→18:02)
[2018-03-11 01:33] LABS: ADD MAN DIFF? NO
[2018-03-11 01:39] LABS: BASO % 1 % (0-3); EOS % 1 % (0-3); HEMOGLOBIN 12.3 g/dL (13.0-17.5); LYMPH # 0.5 x10^3/uL (1.0-4.8); LYMPH % 9 % (24-48); MEAN CORPUSCULAR HEMOGLOBIN 25 pg (25-35); MEAN CORPUSCULAR HGB CONC 33 g/dL (31-37); MEAN CORPUSCULAR VOLUME 74 fL (79-100); MONO # 0.8 x10^3/uL (0.0-1.1); MONO % 13 % (0-9); NEUT # 4.4 x10^3uL (1.8-7.7); NEUT % 77 % (31-73); PLATELET COUNT 194 x10^3/uL (140-400); RED BLOOD COUNT 4.97 x10^6/uL (4.30-5.70); RED CELL DISTRIBUTION WIDTH 15.7 % (11.5-14.5); WHITE BLOOD COUNT 5.7 x10^3/uL (4.0-11.0)
[2018-03-11 01:48] LABS: ANION GAP 8 (6-14); BLOOD UREA NITROGEN 29 mg/dL (8-26); CALCIUM 8.5 mg/dL (8.5-10.1); CARBON DIOXIDE 28 mmol/L (21-32); CHLORIDE 100 mmol/L (98-107); CREATININE 1.2 mg/dL (0.7-1.3); GFR 57.8; GLUCOSE 153 mg/dL (70-99); POTASSIUM 4.1 mmol/L (3.5-5.1); SODIUM 136 mmol/L (136-145)
[2018-03-11 02:01] LABS: TROPONINI < 0.017 ng/mL (0.000-0.055)
[2018-03-11 07:39] LABS: POC GLUCOSE 113 mg/dL (70-99)
[2018-03-11] MEDS: LACTOBACILLUS RHAMNOSUS GG 1 CAPSULE. PO ×2 (08:44→20:54)
[2018-03-11] MEDS: LINAGLIPTIN 5 MG TABLET PO (08:45)
[2018-03-11] MEDS: CARVEDILOL 6.25 MG TABLET. PO ×2 (08:45→17:56)
[2018-03-11] MEDS: POTASSIUM CHLORIDE 10 MEQ TABLET.ER. PO (08:45)
[2018-03-11 11:26] LABS: POC GLUCOSE 138 mg/dL (70-99)
[2018-03-11] MEDS: FLUCONAZOLE 100 MG TABLET. PO (12:08)
[2018-03-11] MEDS: PIPERACILLIN/TAZOBACTAM 3.375 GM in IV NORMAL SALINE 50ML 50 ML IV ×2 (12:09→18:02)
[2018-03-11] MEDS: VANCOMYCIN PER PHARMACY MC (12:33)
[2018-03-11 17:11] LABS: POC GLUCOSE 142 mg/dL (70-99)
[2018-03-11] MEDS: FUROSEMIDE 40 MG/4 ML VIAL. IVP (17:54)
[2018-03-11] MEDS: VANCOMYCIN 1.5 GM in IV 1/2 NORMAL SALINE 500 ML IV (20:20)
[2018-03-11] MEDS: ENOXAPARIN 40 MG/0.4 ML SYRINGE. SQ (20:54)
[2018-03-11] MEDS: ATORVASTATIN CALCIUM 40 MG TABLET. PO (20:54)
[2018-03-11 21:01] LABS: POC GLUCOSE 142 mg/dL (70-99)
[2018-03-12] MEDS: PIPERACILLIN/TAZOBACTAM 3.375 GM in IV NORMAL SALINE 50ML 50 ML IV ×4 (01:21→18:09)
[2018-03-12] MEDS: traMADol 50 MG TABLET PO ×3 (04:19→19:53)
[2018-03-12 08:13] LABS: POC GLUCOSE 123 mg/dL (70-99)
[2018-03-12 08:43] LABS: GFR 48.4
[2018-03-12 08:43] LABS: CREATININE 1.4 mg/dL (0.7-1.3)
[2018-03-12] MEDS: FUROSEMIDE 40 MG/4 ML VIAL. IVP (08:46)
[2018-03-12] MEDS: LACTOBACILLUS RHAMNOSUS GG 1 CAPSULE. PO ×2 (08:46→21:45)
[2018-03-12] MEDS: POTASSIUM CHLORIDE 10 MEQ TABLET.ER. PO (08:47)
[2018-03-12] MEDS: CARVEDILOL 6.25 MG TABLET. PO ×2 (08:47→18:09)
[2018-03-12] MEDS: LINAGLIPTIN 5 MG TABLET PO (08:48)
[2018-03-12] MEDS: FLUCONAZOLE 100 MG TABLET. PO (08:48)
[2018-03-12 11:27] LABS: POC GLUCOSE 153 mg/dL (70-99)
[2018-03-12] MEDS: VANCOMYCIN 1.5 GM in IV 1/2 NORMAL SALINE 500 ML IV (20:00)
[2018-03-12 20:03] LABS: VANC TR 10.9 mcg/mL (10.0-20.0)
[2018-03-12 20:48] LABS: POC GLUCOSE 145 mg/dL (70-99)
[2018-03-12] MEDS: VANCOMYCIN PER PHARMACY MC (20:57)
[2018-03-12] MEDS: VANCOMYCIN 1.75 GM in IV 1/2 NORMAL SALINE 500 ML IV (21:45)
[2018-03-12] MEDS: ATORVASTATIN CALCIUM 40 MG TABLET. PO (21:45)
[2018-03-12] MEDS: ENOXAPARIN 40 MG/0.4 ML SYRINGE. SQ (21:47)
[2018-03-12 21:51] LABS: POC GLUCOSE 185 mg/dL (70-99)
[2018-03-13] MEDS: traMADol 50 MG TABLET PO ×3 (01:43→21:04)
[2018-03-13] MEDS: PIPERACILLIN/TAZOBACTAM 3.375 GM in IV NORMAL SALINE 50ML 50 ML IV ×4 (01:44→17:50)
[2018-03-13] MEDS: fentaNYL PF VIAL 100 MCG/2 ML VIAL IV ×5 (02:55→22:32)
[2018-03-13 04:07] LABS: ANION GAP 8 (6-14); BLOOD UREA NITROGEN 34 mg/dL (8-26); CALCIUM 8.2 mg/dL (8.5-10.1); CARBON DIOXIDE 27 mmol/L (21-32); CHLORIDE 102 mmol/L (98-107); CREATININE 1.1 mg/dL (0.7-1.3); GFR 63.9; GLUCOSE 140 mg/dL (70-99); MAGNESIUM 1.9 mg/dL (1.8-2.4); POTASSIUM 3.9 mmol/L (3.5-5.1); SODIUM 137 mmol/L (136-145)
[2018-03-13 07:50] LABS: POC GLUCOSE 117 mg/dL (70-99)
[2018-03-13] MEDS: CARVEDILOL 6.25 MG TABLET. PO ×2 (08:00→16:56)
[2018-03-13] MEDS: LACTOBACILLUS RHAMNOSUS GG 1 CAPSULE. PO ×2 (09:00→21:04)
[2018-03-13] MEDS ORDERED: IOHEXOL 300 MG/ML 100ML VIAL. (09:46)
[2018-03-13] MEDS ORDERED: LIDOCAINE 2% 20 ML VIAL. ×2 (09:46→11:13)
[2018-03-13] MEDS ORDERED: fentaNYL PF VIAL 100 MCG/2 ML VIAL ×2 (10:21→12:00)
[2018-03-13] MEDS ORDERED: MIDAZOLAM HCL/PF 2 MG/2 ML VIAL. (10:21)
[2018-03-13] MEDS ORDERED: CONTRAST GIVEN MC (10:45)
[2018-03-13] MEDS ORDERED: FUROSEMIDE 100 MG/10 ML VIAL. (11:56)
[2018-03-13] MEDS: LIDOCAINE 2% 20 ML VIAL. IJ (12:19)
[2018-03-13] MEDS: FUROSEMIDE 100 MG/10 ML VIAL. IVP (12:19)
[2018-03-13] MEDS: MIDAZOLAM HCL/PF 2 MG/2 ML VIAL. IV (12:20)
[2018-03-13] MEDS: IOHEXOL 300 MG/ML 100ML VIAL. IART (12:20)
[2018-03-13 16:46] LABS: POC GLUCOSE 185 mg/dL (70-99)
[2018-03-13] MEDS: ASPIRIN ENTERIC COATED 81 MG TABLET.DR. PO (16:55)
[2018-03-13] MEDS: LINAGLIPTIN 5 MG TABLET PO (16:56)
[2018-03-13] MEDS: FLUCONAZOLE 100 MG TABLET. PO (16:56)
[2018-03-13] MEDS: POTASSIUM CHLORIDE 10 MEQ TABLET.ER. PO (16:56)
[2018-03-13 20:43] LABS: POC GLUCOSE 185 mg/dL (70-99)
[2018-03-13] MEDS: ATORVASTATIN CALCIUM 40 MG TABLET. PO (21:04)
[2018-03-13] MEDS: ENOXAPARIN 40 MG/0.4 ML SYRINGE. SQ (21:05)
[2018-03-13] MEDS: VANCOMYCIN 1.75 GM in IV 1/2 NORMAL SALINE 500 ML IV (21:05)
[2018-03-14] MEDS: PIPERACILLIN/TAZOBACTAM 3.375 GM in IV NORMAL SALINE 50ML 50 ML IV ×4 (00:14→16:22)
[2018-03-14] MEDS: FUROSEMIDE 40 MG/4 ML VIAL. IVP (07:32)
[2018-03-14] MEDS: POTASSIUM CHLORIDE 10 MEQ TABLET.ER. PO (07:33)
[2018-03-14] MEDS: LINAGLIPTIN 5 MG TABLET PO (07:33)
[2018-03-14] MEDS: LACTOBACILLUS RHAMNOSUS GG 1 CAPSULE. PO ×2 (07:33→21:30)
[2018-03-14] MEDS: traMADol 50 MG TABLET PO ×2 (07:33→14:38)
[2018-03-14] MEDS: FLUCONAZOLE 100 MG TABLET. PO (07:33)
[2018-03-14] MEDS: CARVEDILOL 6.25 MG TABLET. PO ×2 (07:33→16:23)
[2018-03-14] MEDS: ASPIRIN ENTERIC COATED 81 MG TABLET.DR. PO (07:34)
[2018-03-14 09:00] LABS: POC GLUCOSE 161 mg/dL (70-99)
[2018-03-14] MEDS: LINEZOLID 600 MG TABLET PO ×2 (10:45→21:30)
[2018-03-14 11:39] LABS: POC GLUCOSE 156 mg/dL (70-99)
[2018-03-14 16:17] LABS: POC GLUCOSE 138 mg/dL (70-99)
[2018-03-14] MEDS: LORazepam 0.5 MG TABLET PO (16:23)
[2018-03-14] MEDS: LISINOPRIL 5 MG TABLET. PO (16:43)
[2018-03-14] MEDS: ENOXAPARIN 40 MG/0.4 ML SYRINGE. SQ (21:30)
[2018-03-14] MEDS: ATORVASTATIN CALCIUM 40 MG TABLET. PO (21:30)
[2018-03-14 22:18] LABS: POC GLUCOSE 139 mg/dL (70-99)
[2018-03-15] MEDS: traMADol 50 MG TABLET PO ×2 (00:45→08:56)
[2018-03-15] MEDS: PIPERACILLIN/TAZOBACTAM 3.375 GM in IV NORMAL SALINE 50ML 50 ML IV ×3 (00:45→11:33)
[2018-03-15 05:58] LABS: ANION GAP 7 (6-14); BLOOD UREA NITROGEN 28 mg/dL (8-26); CALCIUM 8.3 mg/dL (8.5-10.1); CARBON DIOXIDE 29 mmol/L (21-32); CHLORIDE 101 mmol/L (98-107); GFR 71.4; GLUCOSE 161 mg/dL (70-99); POTASSIUM 3.6 mmol/L (3.5-5.1); SODIUM 137 mmol/L (136-145)
[2018-03-15 08:34] LABS: POC GLUCOSE 130 mg/dL (70-99)
[2018-03-15] MEDS: LINEZOLID 600 MG TABLET PO (08:52)
[2018-03-15] MEDS: LACTOBACILLUS RHAMNOSUS GG 1 CAPSULE. PO (08:53)
[2018-03-15] MEDS: ASPIRIN ENTERIC COATED 81 MG TABLET.DR. PO (08:53)
[2018-03-15] MEDS: FLUCONAZOLE 100 MG TABLET. PO (08:53)
[2018-03-15] MEDS: POTASSIUM CHLORIDE 10 MEQ TABLET.ER. PO (08:53)
[2018-03-15] MEDS: LINAGLIPTIN 5 MG TABLET PO (08:53)
[2018-03-15] MEDS: FUROSEMIDE 40 MG TABLET. PO (08:53)
[2018-03-15] MEDS: LISINOPRIL 5 MG TABLET. PO (08:53)
[2018-03-15] MEDS: CARVEDILOL 6.25 MG TABLET. PO (08:54)
[2018-03-15 11:18] LABS: POC GLUCOSE 190 mg/dL (70-99)
== END 2018-03-15 13:54 | disposition home or self-care (01) | DRG 602 ==
LOC: ER 15:26 → 5 SOUTH 17:35
PROC: B2111ZZ Fluoroscopy of Multiple Coronary Arteries using Low Osmolar Contrast (ICD-10-PCS; principal; 2018-03-15)
PROC: B2131ZZ Fluoroscopy of Multiple Coronary Artery Bypass Grafts using Low Osmolar Contrast (ICD-10-PCS; 2018-03-15)
PROC: B2151ZZ Fluoroscopy of Left Heart using Low Osmolar Contrast (ICD-10-PCS; 2018-03-15)
PROC: 4A023N7 Measurement of Cardiac Sampling and Pressure, Left Heart, Percutaneous Approach (ICD-10-PCS; 2018-03-15)
DX: L03.115 Cellulitis of right lower limb (principal); I50.43 Acute on chronic combined systolic (congestive) and diastolic (congestive) heart failure; E11.51 Type 2 diabetes mellitus with diabetic peripheral angiopathy without gangrene; E11.622 Type 2 diabetes mellitus with other skin ulcer; L97.919 Non-pressure chronic ulcer of unspecified part of right lower leg with unspecified severity; I11.0 Hypertensive heart disease with heart failure; I25.5 Ischemic cardiomyopathy; I25.10 Atherosclerotic heart disease of native coronary artery without angina pectoris; J44.9 Chronic obstructive pulmonary disease, unspecified; E78.00 Pure hypercholesterolemia, unspecified; E78.5 Hyperlipidemia, unspecified; F60.9 Personality disorder, unspecified; I87.2 Venous insufficiency (chronic) (peripheral); I89.0 Lymphedema, not elsewhere classified; L03.116 Cellulitis of left lower limb; Z82.0 Family history of epilepsy and other diseases of the nervous system; Z86.73 Personal history of transient ischemic attack (TIA), and cerebral infarction without residual deficits; Z87.891 Personal history of nicotine dependence; Z90.49 Acquired absence of other specified parts of digestive tract; Z91.14 Patient's other noncompliance with medication regimen; Z95.1 Presence of aortocoronary bypass graft; G89.29 Other chronic pain; M19.90 Unspecified osteoarthritis, unspecified site; I83.009 Varicose veins of unspecified lower extremity with ulcer of unspecified site
CPT/HCPCS: 36415; 80048; 80076; 80202; 81001; 82553; 82565; 82962; 83690; 83735; 83880; 84484; 85025; 85610; 85651; 86140; 87040; 87086; 93005; 93461; 93970; 96365; 96375; 97161-GP; 97166-GO; 99152; 99153; 99285; 99285-25; C1769; C1773; C1892; J1644; J1650; J1940; J2250; J2405; J2543; J3010; J3370; Q9967

== ENCOUNTER → 2018-03-10 | Outpatient (CLI) | payer MEDICARE, MEDICAID | END | disposition home or self-care (01) | LOC: PMGWOUND 08:34 | DX: I87.313 Chronic venous hypertension (idiopathic) with ulcer of bilateral lower extremity (principal); E11.622 Type 2 diabetes mellitus with other skin ulcer; L97.821 Non-pressure chronic ulcer of other part of left lower leg limited to breakdown of skin; L97.811 Non-pressure chronic ulcer of other part of right lower leg limited to breakdown of skin; I25.10 Atherosclerotic heart disease of native coronary artery without angina pectoris; M19.90 Unspecified osteoarthritis, unspecified site; E11.51 Type 2 diabetes mellitus with diabetic peripheral angiopathy without gangrene; I11.0 Hypertensive heart disease with heart failure; I50.43 Acute on chronic combined systolic (congestive) and diastolic (congestive) heart failure; I89.0 Lymphedema, not elsewhere classified; J44.1 Chronic obstructive pulmonary disease with (acute) exacerbation; E03.9 Hypothyroidism, unspecified; L13.9 Bullous disorder, unspecified; E78.00 Pure hypercholesterolemia, unspecified; Z95.1 Presence of aortocoronary bypass graft; Z90.49 Acquired absence of other specified parts of digestive tract; Z79.82 Long term (current) use of aspirin; Z86.73 Personal history of transient ischemic attack (TIA), and cerebral infarction without residual deficits | CPT/HCPCS: 97597; 97598 ==

== ENCOUNTER → 2018-03-20 | Outpatient (CLI) | payer MEDICARE, MEDICAID | END | disposition home or self-care (01) | LOC: PMGWOUND 11:13 | DX: I87.313 Chronic venous hypertension (idiopathic) with ulcer of bilateral lower extremity (principal); E11.622 Type 2 diabetes mellitus with other skin ulcer; L97.811 Non-pressure chronic ulcer of other part of right lower leg limited to breakdown of skin; L97.821 Non-pressure chronic ulcer of other part of left lower leg limited to breakdown of skin; I25.10 Atherosclerotic heart disease of native coronary artery without angina pectoris; J44.9 Chronic obstructive pulmonary disease, unspecified; E78.5 Hyperlipidemia, unspecified; I11.0 Hypertensive heart disease with heart failure; I50.43 Acute on chronic combined systolic (congestive) and diastolic (congestive) heart failure; I89.0 Lymphedema, not elsewhere classified; G89.29 Other chronic pain; E78.00 Pure hypercholesterolemia, unspecified; E11.51 Type 2 diabetes mellitus with diabetic peripheral angiopathy without gangrene; M19.90 Unspecified osteoarthritis, unspecified site; E03.9 Hypothyroidism, unspecified; Z90.49 Acquired absence of other specified parts of digestive tract; Z95.1 Presence of aortocoronary bypass graft; Z87.891 Personal history of nicotine dependence; Z86.73 Personal history of transient ischemic attack (TIA), and cerebral infarction without residual deficits | CPT/HCPCS: 29581 ==

== ENCOUNTER → 2018-03-25 | Outpatient (CLI) | payer MEDICARE, MEDICAID | END | disposition home or self-care (01) | LOC: PMGWOUND 11:14 | DX: I87.313 Chronic venous hypertension (idiopathic) with ulcer of bilateral lower extremity (principal); E11.622 Type 2 diabetes mellitus with other skin ulcer; L97.811 Non-pressure chronic ulcer of other part of right lower leg limited to breakdown of skin; L97.821 Non-pressure chronic ulcer of other part of left lower leg limited to breakdown of skin; I25.10 Atherosclerotic heart disease of native coronary artery without angina pectoris; J44.9 Chronic obstructive pulmonary disease, unspecified; E78.5 Hyperlipidemia, unspecified; I11.0 Hypertensive heart disease with heart failure; I50.43 Acute on chronic combined systolic (congestive) and diastolic (congestive) heart failure; I89.0 Lymphedema, not elsewhere classified; G89.29 Other chronic pain; E78.00 Pure hypercholesterolemia, unspecified; E11.40 Type 2 diabetes mellitus with diabetic neuropathy, unspecified; E11.51 Type 2 diabetes mellitus with diabetic peripheral angiopathy without gangrene; M19.90 Unspecified osteoarthritis, unspecified site; E03.9 Hypothyroidism, unspecified; Z90.49 Acquired absence of other specified parts of digestive tract; Z95.1 Presence of aortocoronary bypass graft; Z87.891 Personal history of nicotine dependence; Z86.73 Personal history of transient ischemic attack (TIA), and cerebral infarction without residual deficits | CPT/HCPCS: 29581 ==

== ENCOUNTER → 2018-04-01 | Outpatient (CLI) | payer MEDICARE, MEDICAID | END | disposition home or self-care (01) | LOC: PMGWOUND 10:42 | DX: I87.313 Chronic venous hypertension (idiopathic) with ulcer of bilateral lower extremity (principal); E11.622 Type 2 diabetes mellitus with other skin ulcer; L97.811 Non-pressure chronic ulcer of other part of right lower leg limited to breakdown of skin; L97.821 Non-pressure chronic ulcer of other part of left lower leg limited to breakdown of skin; I25.10 Atherosclerotic heart disease of native coronary artery without angina pectoris; J44.9 Chronic obstructive pulmonary disease, unspecified; E78.5 Hyperlipidemia, unspecified; I11.0 Hypertensive heart disease with heart failure; I50.43 Acute on chronic combined systolic (congestive) and diastolic (congestive) heart failure; I89.0 Lymphedema, not elsewhere classified; G89.29 Other chronic pain; E78.00 Pure hypercholesterolemia, unspecified; E11.40 Type 2 diabetes mellitus with diabetic neuropathy, unspecified; E11.51 Type 2 diabetes mellitus with diabetic peripheral angiopathy without gangrene; M19.90 Unspecified osteoarthritis, unspecified site; E03.9 Hypothyroidism, unspecified; Z90.49 Acquired absence of other specified parts of digestive tract; Z95.1 Presence of aortocoronary bypass graft; Z87.891 Personal history of nicotine dependence; Z86.73 Personal history of transient ischemic attack (TIA), and cerebral infarction without residual deficits; Z79.82 Long term (current) use of aspirin | CPT/HCPCS: 29581; 97597; 97598 ==

== ENCOUNTER → 2018-05-15 | Outpatient (CLI) | payer MEDICARE, MEDICAID | END | disposition home or self-care (01) | LOC: PMGWOUND 07:58 | DX: I87.313 Chronic venous hypertension (idiopathic) with ulcer of bilateral lower extremity (principal); E11.622 Type 2 diabetes mellitus with other skin ulcer; L97.811 Non-pressure chronic ulcer of other part of right lower leg limited to breakdown of skin; L97.821 Non-pressure chronic ulcer of other part of left lower leg limited to breakdown of skin; S70.322D Blister (nonthermal), left thigh, subsequent encounter; I25.10 Atherosclerotic heart disease of native coronary artery without angina pectoris; J44.9 Chronic obstructive pulmonary disease, unspecified; E78.5 Hyperlipidemia, unspecified; I11.0 Hypertensive heart disease with heart failure; I50.43 Acute on chronic combined systolic (congestive) and diastolic (congestive) heart failure; I89.0 Lymphedema, not elsewhere classified; G89.29 Other chronic pain; E78.00 Pure hypercholesterolemia, unspecified; E11.40 Type 2 diabetes mellitus with diabetic neuropathy, unspecified; E11.51 Type 2 diabetes mellitus with diabetic peripheral angiopathy without gangrene; M19.90 Unspecified osteoarthritis, unspecified site; E03.9 Hypothyroidism, unspecified; Z90.49 Acquired absence of other specified parts of digestive tract; Z95.1 Presence of aortocoronary bypass graft; Z87.891 Personal history of nicotine dependence; Z86.73 Personal history of transient ischemic attack (TIA), and cerebral infarction without residual deficits; Z79.82 Long term (current) use of aspirin; X58.XXXD Exposure to other specified factors, subsequent encounter | CPT/HCPCS: 29581 ==

== ENCOUNTER 2018-06-12 05:28 | Emergency (ER) | payer MEDICARE, MEDICAID ==
[2018-06-12 07:41] LABS: ADD MAN DIFF? NO
[2018-06-12 07:49] LABS: BASO # 0.1 x10^3/uL (0.0-0.2); BASO % 1 % (0-3); EOS # 0.1 x10^3/uL (0.0-0.7); EOS % 1 % (0-3); HEMATOCRIT 35.2 % (39.0-53.0); HEMOGLOBIN 11.4 g/dL (13.0-17.5); LYMPH # 0.8 x10^3/uL (1.0-4.8); LYMPH % 9 % (24-48); MEAN CORPUSCULAR HEMOGLOBIN 23 pg (25-35); MEAN CORPUSCULAR HGB CONC 32 g/dL (31-37); MEAN CORPUSCULAR VOLUME 71 fL (79-100); MONO # 0.7 x10^3/uL (0.0-1.1); MONO % 8 % (0-9); NEUT # 7.3 x10^3uL (1.8-7.7); NEUT % 81 % (31-73); PLATELET COUNT 194 x10^3/uL (140-400); RED BLOOD COUNT 4.94 x10^6/uL (4.30-5.70); RED CELL DISTRIBUTION WIDTH 17.1 % (11.5-14.5)
[2018-06-12 08:05] LABS: INR 1.2 (0.8-1.1); PARTIAL THROMBOPLASTIN TIME 43 SEC (24-38); PROTHROMBIN TIME PATIENT 15.1 SEC (11.7-14.0)
[2018-06-12 08:15] LABS: ANION GAP 10 (6-14); BLOOD UREA NITROGEN 14 mg/dL (8-26); BUN/CREATININE RATIO 16 (6-20); CALCIUM 8.9 mg/dL (8.5-10.1); CARBON DIOXIDE 28 mmol/L (21-32); CHLORIDE 99 mmol/L (98-107); CREATININE 0.9 mg/dL (0.7-1.3); GFR 80.6; GLUCOSE 160 mg/dL (70-99); POTASSIUM 3.7 mmol/L (3.5-5.1); SODIUM 137 mmol/L (136-145)
[2018-06-12 08:16] LABS: AMMONIA 14 mcmol/L (11-34)
[2018-06-12 08:19] LABS: ALBUMIN 3.1 g/dL (3.4-5.0); ALBUMIN/GLOBULIN RATIO 0.7 (1.0-1.7); ALK PHOS 90 U/L (46-116); ALT (SGPT) 29 U/L (16-63); AST (SGOT) 27 U/L (15-37); MAGNESIUM 1.9 mg/dL (1.8-2.4); TOTAL BILIRUBIN 1.1 mg/dL (0.2-1.0); TOTAL PROTEIN 7.3 g/dL (6.4-8.2)
[2018-06-12 08:49] LABS: PLT ESTIMATE ADEQUATE (ADEQUATE)
[2018-06-12 08:50] LABS: ANISOCYTOSIS SLIGHT
[2018-06-12 09:04] LABS: BILIRUBIN,URINE NEGATIVE (NEG); CLARITY,URINE CLEAR; COLOR,URINE YELLOW; GLUCOSE,URINE NEGATIVE (NEG); NITRITE,URINE NEGATIVE (NEG); PH,URINE 7.5; PROTEIN,URINE 30 mg/dL (NEG-TRACE)
[2018-06-12 09:09] LABS: BARBITURATES NEG (NEG); BENZODIAZEPINES NEG (NEG); CANNABINOIDS NEG (NEG); COCAINE NEG (NEG); METHADONE NEG (NEG); OPIATES NEG (NEG); PHENCYCLIDINE NEG (NEG)
[2018-06-12 09:12] LABS: AMPHETAMINE/METHAMPHETAMINE NEG (NEG); ETHANOL, URINE NEG (NEG)
[2018-06-12 09:13] LABS: BACTERIA,URINE MANY /HPF (0-FEW); SQUAMOUS EPITHELIAL CELL,UR FEW /LPF; WBC,URINE 20-40 /HPF (0-4)
[2018-06-12 09:38] LABS: PROCALCITONIN < 0.10 ng/mL (0.00-0.10)
[2018-06-12 10:51] LABS: CKMB MASS 0.7 ng/mL (0.0-3.6); CREATINE KINASE 34 U/L (39-308)
[2018-06-12 10:51] LABS: NT-PRO BNP 9478 pg/mL (0-449)
[2018-06-12 11:11] LABS: TROPONINI 0.034 ng/mL (0.000-0.055)
== END 2018-06-12 13:00 ==
LOC: ER 05:28
DX: I87.313 Chronic venous hypertension (idiopathic) with ulcer of bilateral lower extremity (principal); L97.221 Non-pressure chronic ulcer of left calf limited to breakdown of skin; L97.211 Non-pressure chronic ulcer of right calf limited to breakdown of skin; I11.0 Hypertensive heart disease with heart failure; I50.43 Acute on chronic combined systolic (congestive) and diastolic (congestive) heart failure; E11.8 Type 2 diabetes mellitus with unspecified complications; I89.0 Lymphedema, not elsewhere classified; J81.1 Chronic pulmonary edema; E78.00 Pure hypercholesterolemia, unspecified; Z90.49 Acquired absence of other specified parts of digestive tract; Z95.5 Presence of coronary angioplasty implant and graft
CPT/HCPCS: 36415; 70450; 71045; 80053; 80307; 81001; 82140; 82553; 83735; 83880; 84145; 84484; 85025; 85610; 85730; 87086; 93005; 99285-25